=== PATIENT | female | born 1990 ===

== ENCOUNTER 2024-11-02 05:53 | Day surgery (SDC) | payer OTHER ==
[2024-11-02] MEDS ORDERED: FentaNYL CITRATE/PF 50MCG/ML 2ML VIAL IJ ONE (07:45)
[2024-11-02] MEDS ORDERED: DIPHENHYDRAMINE HCL 50 MG/ML VIAL 1ML IV ONE (07:45)
[2024-11-02] MEDS ORDERED: MIDAZOLAM HCL/PF 5 MG/ML VIAL IV ONE (07:45)
[2024-11-02] MEDS ORDERED: PROTONIX40 MG PO (07:51)
== END 2024-11-02 09:00 | disposition home or self-care (01) ==
LOC: AMB-ENDOS 05:53
PROVIDERS: ATTEND Surgery
DX: K29.70 Gastritis, unspecified, without bleeding (principal); R10.13 Epigastric pain; E66.09 Other obesity due to excess calories; K44.9 Diaphragmatic hernia without obstruction or gangrene